=== PATIENT | female | born 2000 | race Caucasian/White ===

== ENCOUNTER 2022-03-16 17:43 | Emergency (ER) | payer SELFPAY ==
[2022-03-16] MEDS ORDERED: Sodium Chloride 0.9% 10 ML Syringe FLUSH PRN (18:09)
[2022-03-16 18:50] LABS: PTT,PARTIAL THROMBOPLSTIN TIME 29.2 SEC (20.5-30.9)
[2022-03-16 18:55] LABS: CHLORIDE,CL 103 mmol/L (98-107); SODIUM,NA 141 mmol/L (136-145)
[2022-03-16] MEDS ORDERED: Sodium Chloride 0.9% 1,000 ML IV SCH (19:00)
[2022-03-16 19:01] LABS: ANION GAP 11.6 mmol/L (5-15); ESTIMATED GFR 109 mL/min (>=60)
[2022-03-16] MEDS ORDERED: Iopamidol 612 MG/ML 100 ML Bottle IVPUSH ONE (19:08)
[2022-03-16] MEDS ORDERED: Ertapenem 1 GM Vial IVPUSH ONE (20:17)
== END 2022-03-16 20:42 | disposition short-term general hospital (02) ==
LOC: SUPCPDRO 17:43 → VM.ED 17:43
DX: K37 Unspecified appendicitis (principal)
CPT/HCPCS: 74177; 80053; 81001; 81025; 83605; 83735; 84100; 85025; 85610; 85730; 86140; 96361; 96374; 99285; J1335; J7030; Q9967